=== PATIENT | female | born 1950 | race Caucasian/White ===

== ENCOUNTER 2017-01-12 22:46 | Emergency (ER) | payer MEDICARE ==
[~2017-01-12] VITALS: Ht 157.5 cm; Wt 85.5 kg
[2017-01-12 22:47] VITALS: Ht 157.5 cm; Wt 85.5 kg
--- NOTE | 2017-01-12 22:59 | NUR ---
RT RT AT BEDSIDE FOR BREATHING TX
[2017-01-12] MEDS ORDERED: ALBUTEROL/IPRATROPIUM INHAL. 2.5mg-0.5mg/3ml Neb. AEROSOL ONE ×3 (23:00→23:45)
--- NOTE | 2017-01-12 23:03 | ERPDOC ---
Departure Disposition Decision Date: Jan 13, 2017 Disposition Decision Time: 00:55 Disposition: 01 DISCHARGED HOME, SELF-CARE Impression Impression Impression: Primary Impression: COPD exacerbation Severity: Severe Condition: Improved Seen By: Physician only Referrals: (Family) 3 Days Patient Instructions: COPD (Chronic Obstructive Pulmonary Disease) (ED) Problems/Meds/Labs Reviewed?: Yes Medications reviewed and manag: Yes Additional Instructions: You have COPD, based on our exam today. Take the prednisone as prescribed, use the albuterol and ipratroprium as prescribed, and follow up with your doctor for management of this condition. Follow up care ordered?: Yes Mental Status: Alert, Oriented Scripts Ipratropium [place] (Atrovent Hfa) 200 Puff/12.9 G Inhaler 2 PUFF INH QID, #12.9 GM 3 Refills Prov: KADE SAUER DO 01/13/17 Albuterol Sulfate (Proair HFA 90 mcg/actuation) 8.5 Gm Hfa.aer.ad 2 PUFF INH Q4H Y for WHEEZING for 30 Days, INHALER Prov: KADE SAUER DO 01/13/17 Prednisone (Prednisone) 20 Mg Tablet 40 MG PO DAILY for 5 Days, #10 TAB 0 Refills Take daily each morning Prov: JANUARYKADE DO 01/13/17 HPI - Dyspnea General Chief Complaint: Dyspnea/Respdistress Stated Complaint: DIFF BREATHING Time Seen by Provider: 22:51 Source: patient Exam Limitations: no limitations HPI - Dyspnea Initial Comments 66yo woman [facility]. Pt has had progressive dyspnea with exertion => at rest over the last two days, which she attributes to 'allergies'. Pt has a roommate who smokes; pt adamantly denies smoking. Denies meds for breathing issues; denies h/o asthma or COPD. Occurred At: home Onset/Timing: Gradual, Getting worse Duration: 12-24 hrs Severity: moderate Activities at Onset: none Prior Episodes/Possible Cause: occasional episodes Modifying Factors: IMPROVES WITH: oxygen, rest, WORSE WITH: activity, coughing Associated Symptoms: denies symptoms Aspirin Treatment Today: contraindicated Hx of Similar Symptoms: Yes Allergies: Coded Allergies: No Known Allergies (Unverified , 01/12/17) Past History Past Medical History Pt denies signifigant [facility] Review of Systems Pulmonary Respiratory: cough, dyspnea, tachypnea All other Systems All Other Systems: Reviewed and Negative Physical Exam General General Nourishment: well nourished, well developed, appears stated age, adult , obese, acute distress General Body Habitus: disheveled Vitals and Pain First Documented Vital Signs Date Time Temp Pulse Resp B/P Pulse Ox O2 Delivery O2 Flow Rate FiO2 01/12/17 22:47 98.3 98 26 184/102 95 Room Air Weight: Kilograms: 85.500 Height (feet): 5 Height (inches): 2.00 Triage Pain Scale: RN VS reviewed by Provider: Yes Normal Exams: Head: Normocephalic w/o trauma Eyes: Pupils are PERRLA w/ EOMI, No scleral icterus, irritation ENMT: No facial trauma, nasal exudates, pharyngeal erythema Neck: Full range of motion, without adenopathy, JVD Lymphatic: No lymphadenopathy Musculoskeletal: No tenderness, or deformity noted Integumentary: No rashes, hives, or bruising noted Neurologic: Patient is alert, and oriented Respiratory (brief) Respiratory: FOUND: equal bilaterally, symmetrical, wheezes (Insp/exp throughout lung willis), NOT FOUND: clear all willis, rales Cardiovascular (brief) Cardiac: FOUND: regular rhythm, NOT FOUND: click, gallop, murmur, pedal edema, peripheral edema, regular rate (Tachycardia), rub Capillary Refill: <2 sec Pulses: all distal extremities, equal, strong Abdomen (brief) Abdominal Brief: FOUND: bowel normo active x4, soft, NOT FOUND: distended, hepatosplenomegaly, pulsatile mass, tender Differential Diagnoses Considering: Acute Bronchitis, Acute Respiratory Failure, Asthma Exacerbation, CHF, COPD Exacerbation, Influenza, Pertussis, Pneumonia, Pneumothorax, Pulmonary Edema, Sinusitis, Viral Syndrome Progress Results/Orders Orders Procedure Category Date Status Time Albuterol/Ipratropium PHA 01/12/17 Complete (Duoneb) 23:00 Bmp - Basic Metabolic LAB 01/12/17 Complete Panel 22:54 Probnp LAB 01/12/17 Complete 22:54 Cbc W/Auto LAB 01/12/17 Complete Diff-Reflex Manual 22:54 Blood Culture ALEXY 01/12/17 In Process 22:54 Troponin I W LAB 01/12/17 Complete Hemolysis Index 22:54 Chest, Pa & Lateral RAD 01/12/17 Taken 22:54 Iv Lock (Ed Only) EDM 01/12/17 Transmitted 22:54 Methylprednisolone PHA 01/12/17 Complete Sod Succ (Solu-Medrol 23:00 Oxygen Administration EDM 01/12/17 Transmitted 22:54 Albuterol/Ipratropium PHA 01/12/17 Complete (Duoneb) 23:15 Albuterol/Ipratropium PHA 01/12/17 Complete (Duoneb) 23:45 Albuterol (Ventolin PHA 01/13/17 Complete Hfa) 01:00 Inhaler Assist Device PHA 01/13/17 Complete - Spacer (Opticham 01:00 Prednisone 20mg PHA 01/13/17 Complete (Prepack) (Prednisone 01:00 Lab Results Laboratory Tests Test 01/12/17 23:01 White Blood Count 9.0T/MM3 Red Blood Count 5.66M/MM3 Hemoglobin 16.0GM/DL Hematocrit 48.9% Mean Corpuscular Volume 86.4UM3 Mean Corpuscular Hemoglobin 28.3UUG Mean Corpuscular Hemoglobin Concent 32.7GM/DL RDW Standard Deviation 41.5FL Platelet Count 204T/MM3 Mean Platelet Volume 10.5UM3 Immature Granulocyte % (Auto) 0.1% Neutrophils (%) (Auto) 58.4% Lymphocytes (%) (Auto) 29.3% Monocytes (%) (Auto) 4.7% Eosinophils (%) (Auto) 6.9% Basophils (%) (Auto) 0.6% Absolute Immature Granulocyte (auto 0.01T/MM3 Absolute Neutrophils (auto) 5.3T/MM3 Absolute Lymphocytes (auto) 2.7T/MM3 Absolute Monocytes (auto) 0.4T/MM3 Absolute Eosinophils (auto) 0.6T/MM3 Absolute Basophils (auto) 0.1T/MM3 Turbidity < 20 Sodium Level 147MEQ/L Potassium Level 3.6MEQ/L Chloride Level 96MEQ/L Carbon Dioxide Level 36MEQ/L Anion Gap 15MEQ/L Blood Urea Nitrogen 15.0MG/DL Creatinine 0.8MG/DL Glomerular Filtration Rate Calc 72 BUN/Creatinine Ratio 19RATIO Glucose Level 143MG/DL Calculated Osmolality 285MOSM/KG Calcium Level 9.5MG/DL Icterus Index < 2 Troponin I < 0.012ng/ml [id number] Natriuretic Peptide 63PG/ML Chemistry Specimen Hemolysis 15 Medications Current ED Medications Albuterol/ Ipratropium (Duoneb) 3 ml O ONCE AEROSOL Last administered on 22:58; Start 01/12/17 at 23:00; Stop 01/12/17 at 23:01; Status DC Methylprednisolone Sodium Succinate (Solu-Medrol) 125 mg O ONCE IV Last administered on 01/12/17 23:24; Start 01/12/17 at 23:00; Stop 01/12/17 at 23:01 ; Status DC Albuterol/ Ipratropium (Duoneb) 3 ml O ONCE AEROSOL Last administered on 23:35; Start 01/12/17 at 23:15; Stop 01/12/17 at 23:16; Status DC Albuterol/ Ipratropium (Duoneb) 3 ml O ONCE AEROSOL Last administered on 00:05; Start 01/12/17 at 23:45; Stop 01/12/17 at 23:46; Status DC Albuterol (Ventolin Hfa) 2 puff O ONCE ORAL INH Last administered on 00:55; Start 01/13/17 at 01:00; Stop 01/13/17 at 01:01; Status DC Device (Optichamber) 1 each O ONCE MC Last administered on 01/13/17 01:00; Start 01/13/17 at 01:00; Stop 01/13/17 at 01:01; Status DC Prednisone (PredniSONE 20MG (PrePack)) 1 pack O ONCE SENT HOME ; Start at 01:00; Stop 01/13/17 at 01:01; Status DC Progress Progress Markedly improved lung fx. Pt with PE evidence of COPD, despite lack of hx dx. Discussed dx, prognosis, tx, and need for f/u for chronic mgmt to prevent future exacerbations/hospitalizations. Pt voiced understanding. F/u with PCM. No sputum production, purulent or o/w; no indications for atbx at this time. Xray Xray : Xray: CXR PA/Lat Interpretation: Abnormal (Increased b/l LL markings), Interpreted by KADE Carreno DO Jan 12, 2017 23:03
--- NOTE | 2017-01-12 23:05 | NUR ---
IMAGING PT TO IMAGING VIA WHEEL CHAIR AT THIS TIME.
[2017-01-12 23:07] LABS: BASOPHILS # (AUTO) 0.1 T/MM3 (0-0.2); BASOPHILS % (AUTO) 0.6 % (0-2); EOSINOPHILS # (AUTO) 0.6 T/MM3 (0-0.5); EOSINOPHILS % (AUTO) 6.9 % (0-4); HCT - HEMATOCRIT 48.9 % (36-46); IMMATURE GRANULOCYTE # (AUTO) 0.01 T/MM3 (0.00-0.03); IMMATURE GRANULOCYTE % (AUTO) 0.1 % (0.0-0.5); LYMPHOCYTES # (AUTO) 2.7 T/MM3 (1-4.8); LYMPHOCYTES % (AUTO) 29.3 % (23-45); MEAN CORPUSCULAR HGB 28.3 UUG (26-34); MEAN CORPUSCULAR HGB CONC(MCHC 32.7 GM/DL (31-37); MEAN CORPUSCULAR VOLUME 86.4 UM3 (80-100); MEAN PLATELET VOLUME 10.5 UM3 (9.4-12.4); MONOCYTES # (AUTO) 0.4 T/MM3 (0-0.8); MONOCYTES % (AUTO) 4.7 % (0-9.0); NEUTROPHILS #(AUTO)-ABSOLUTE 5.3 T/MM3 (1.8-7.7); NEUTROPHILS % (AUTO) 58.4 % (33-66); RED BLOOD COUNT 5.66 M/MM3 (4.00-5.20)
--- NOTE | 2017-01-12 23:10 | NUR ---
IMAGING PT RETURN TO ROOM VIA WHEEL CHAIR
[2017-01-12 23:16] LABS: ANION GAP 15 MEQ/L (5-15); BUN/CREATININE RATIO 19 RATIO (6-26); CALCIUM 9.5 MG/DL (8.4-10.2); CHLORIDE 96 MEQ/L (98-107); CO2 - CARBON DIOXIDE 36 MEQ/L (22-30); CREATININE 0.8 MG/DL (0.7-1.2); GLOMERULAR FILTRATION RATE 72; GLUCOSE 143 MG/DL (65-110); POTASSIUM 3.6 MEQ/L (3.6-5); SODIUM 147 MEQ/L (134-144)
[2017-01-12 23:25] LABS: PROBNP 63 PG/ML (0-175)
--- NOTE | 2017-01-12 23:28 | NUR ---
EKG PT REFUSED EKG AT THIS TIME. PROVIDER NOTIFIED.
--- NOTE | 2017-01-12 23:32 | NUR ---
RT RT AT BEDSIDE FOR BREATHING TREATMENT
[2017-01-12] MEDS ORDERED: HYDR25TA PO (23:34)
[2017-01-13] MEDS ORDERED: PRED20TA PO (00:58)
[2017-01-13] MEDS ORDERED: IPRA12.9 INH (00:58)
[2017-01-13] MEDS ORDERED: ALBU8.5H INH (00:58)
[2017-01-13] MEDS ORDERED: PredniSONE 20mg TAB #3 (PrePack) SENT HOME ONE (01:00)
[2017-01-13] MEDS ORDERED: INHALER ASSIST DEVICE (Optichamber) MC ONE (01:00)
[2017-01-13] MEDS ORDERED: ALBUTEROL HFA INHALER 8gm ORAL INH ONE (01:00)
[2017-01-13 01:15] VITALS: BP 158/73; PULSE 96; RESP 24; TEMP 98.3; O2SAT 93
--- NOTE | 2017-01-13 01:15 | NUR ---
DEPART PT GIVEN DI FOR COPD, PROAIR HFA, ATROVENT HFA, PREDNISONE, F/U. RX PROVIDED FOR PROAIR, ATROVENT, AND PREDNISONE. PT GIVEN VENTOLIN INH AND SPACER AND PREPAK FOR PREDNISONE. PT VERBALIZES UNDERSTANDING OF DI, MEDS, AND NEED FOR F/U. QUESTIONS ASKED/ANSWERED - DENIES FURTHER QUESTIONS/NEEDS AT THIS TIME. IV SITE REMOVED. PERSONAL BELONGINGS GATHERED. PT AMBULATED/ESCORTED TO ED EXIT - GAIT STABLE, NO SIGN OF RESPIRATORY DISTRESS AT THIS TIME.
--- NOTE | 2017-01-13 06:54 | DI ---
LOCATION OF DICTATION: [place] EXAM: CHEST, PA LATERAL HISTORY: ITS.REASON: Dyspnea/wheezing COMPARISON: No prior studies available for comparison. FINDINGS: The heart size is normal. The mediastinal configuration is unremarkable. There are no consolidating opacities or pleural effusions. There is mild bibasilar atelectasis or scarring suggested. The lungs are hyperexpanded. There is no evidence for a pneumothorax. The osseous structures are within normal limits. IMPRESSION: Slightly hyperexpanded lungs with mild bibasilar atelectasis or scarring suggested. .
== END 2017-01-13 01:15 | disposition home or self-care (01) ==
LOC: ED 22:46
DX: J44.9 Chronic obstructive pulmonary disease, unspecified (principal)
CPT/HCPCS: 71020; 80048; 83880; 84484; 85025; 87040; 94640; 96374; 99284; A9270; J2930; J7512